=== PATIENT | male | born 1940 | race Caucasian/White ===

== ENCOUNTER 2016-12-10 08:30 | Inpatient (IN) | payer MEDICARE ==
--- NOTE | 2016-12-08 21:27 | HP ---
HISTORY AND PHYSICAL: DATE OF VISIT: 12/08/16 DATE OF SURGERY: 12/10/16 SURGEON: Domi Steele MD PROCEDURE: Left total hip arthroplasty. CHIEF COMPLAINT: Left hip pain. HISTORY OF PRESENT ILLNESS: Mr. Babb is a 76-year-old gentleman with complaints of left hip pain. He has failed conservative management and has elected to proceed with a left total hip arthroplasty, which is scheduled for with Dr. Steele. PAST MEDICAL HISTORY: Hypertension, asthma, high cholesterol, GERD, prostate cancer, spinal stenosis. PAST SURGICAL HISTORY: Radical prostatectomy, laminectomy, circumcision. CURRENT MEDICATIONS: 1. Metoprolol. 2. Vitamin B complex. 3. Citalopram. 4. Hydrobromide. 5. Fluticasone propionate. 6. Atorvastatin. 7. Calcium. 8. Aspirin. 9. Vitamin D. 10. Gabapentin. ALLERGIES: IBUPROFEN causes Medrano-Idris syndrome FAMILY HISTORY: Diabetes, heart disease, and colon cancer. SOCIAL HISTORY: He is a 76-year-old gentleman. He lives with his . He is retired. He does not smoke or use drugs. Uses occasional alcohol. REVIEW OF SYSTEMS: A complete 14-point review of systems was reviewed with the patient, all was negative or noncontributory. PHYSICAL EXAMINATION GENERAL: He is well-developed and well-nourished, he is in no acute distress. VITAL SIGNS: He stands 6 feet 4 inches tall, he is 190 pounds. Blood pressure 150/65 and heart rate 71. HEENT: Normocephalic, atraumatic. NECK: Supple. No palpable lymph nodes. Trachea is midline. PULMONARY: Lungs are clear to auscultation bilaterally. No wheezes, rhonchi, or rales. CARDIO: Regular rate and rhythm. Strong S1 and S2. No murmurs, gallops, or rubs. ABDOMEN: Soft, nontender, and nondistended. NEUROLOGIC: He is alert and oriented x3. Cranial nerves II through XII are intact. MUSCULOSKELETAL: Left lower extremity, skin is intact. He has limited range of motion with internal and external rotation of his left hip. He walks with an antalgic type gait. He has 2+ dorsalis pedal pulses. His lower extremities muscle group strengths were intact at 5/5. ASSESSMENT AND PLAN: Mr. Babb is a 76-year-old gentleman with complaints of left hip pain secondary to advanced osteoarthritis. He has failed conservative management and has elected to proceed with a left total hip arthroplasty, which is scheduled for 12/10/[address] Steele discussed the risks and the benefits of the surgery at today's visit and all of his questions were answered. Coumadin and Percocet were sent to his pharmacy today for postoperative pain control and DVT prophylaxis. He has a prescription for Colace to help with constipation following the surgery. He will follow up with Dr. Steele in 10 to 14 days after the surgery. EZE WINSTON [id number]/[facility] #: [id number] MTDD
[~2016-12-10 08:30] MED LIST: Buffered Lidocaine 1% SYRIN* 3 ML/SYR SYRINGE INTRADERM ONE; Dexamethasone IV* 4 MG/ML 1 ML (4 MG) IV SLOW PU ONE; Famotidine IV* 10 MG/ML 2 ML (20 mg) IV ONE
[2016-12-10] MEDS ORDERED: Bupivacaine 0.5% SDV PF* 30 ML VIAL ONE ×2 (11:04→14:16)
[2016-12-10] MEDS ORDERED: Propofol* 10 MG/ML 20 ML BTL IV PUSH ONE (11:04)
[2016-12-10] MEDS ORDERED: Famotidine IV* 10 MG/ML 2 ML (20 mg) ONE (12:32)
[2016-12-10] MEDS ORDERED: Dexamethasone IV* 4 MG/ML 1 ML (4 MG) ONE (12:32)
[2016-12-10] MEDS ORDERED: ceFAZolin 2 GM PREMIX(*) 2 GM/50 ML BAG IVPB ONE (12:32)
[2016-12-10] MEDS ORDERED: fentaNYL* 50 MCG/ML 2 ML VIAL (100 MCG VIAL) ONE ×2 (13:26→15:32)
[2016-12-10] MEDS ORDERED: Morphine PF AMP (0.5MG/ML)* 5 MG/10 ML AMP ONE (13:26)
[2016-12-10] MEDS ORDERED: Midazolam* 1 MG/ML 5 ML VIAL (5 MG) ONE (13:26)
[2016-12-10] MEDS ORDERED: HYDROmorphone* 1 MG/ML 1 ML SYR ONE ×3 (13:26→16:57)
[2016-12-10] MEDS ORDERED: Sevoflurane* 1 BTL ONE (14:27)
[2016-12-10] MEDS ORDERED: Meperidine SYRINGE* 50 MG/ML ONE (15:31)
[2016-12-10] MEDS ORDERED: DiMENhydriNATE IV* 50 MG/ML VIAL IV PUSH PRN ×2 (16:10→16:14)
[2016-12-10] MEDS ORDERED: fentaNYL* 50 MCG/ML 2 ML VIAL (100 MCG VIAL) IV PRN (16:10)
[2016-12-10] MEDS ORDERED: PROCHLORPERAZINE INJ 5 MG/ML 2 ML VIAL IV PRN ×2 (16:10→16:14)
[2016-12-10] MEDS ORDERED: Ondansetron INJ* 2 MG/ML VIAL IV PRN ×2 (16:10→16:14)
[2016-12-10] MEDS ORDERED: Naloxone* 0.4 MG/ML 1 ML VIAL IV PRN (16:14)
[2016-12-10] MEDS ORDERED: diPHENhydraMINE IV* 50 MG/ML 1 ml VIAL (BENADRYL) IV PRN (16:14)
[2016-12-10] MEDS ORDERED: Nalbuphine* 20 MG/ML 1 ML VIAL IV PRN (16:14)
[2016-12-10] MEDS ORDERED: oxyCODONE/Acetamin 5/325 MG* TAB PO PRN (16:14)
[2016-12-10] MEDS ORDERED: Polyethylene Glycol 3350* 17 GM PACKET PO PRN (16:55)
[2016-12-10] MEDS ORDERED: Bisacodyl SUPP* 10 MG SUPP PR PRN (16:55)
[2016-12-10] MEDS ORDERED: LACTULOSE* 30 ML UDC PO PRN (16:55)
--- NOTE | 2016-12-10 17:43 | RAD ---
INDICATION: Left total hip replacement surgery, intraoperative study. COMPARISON: Comparison is made with a prior x-ray study of the left hip from October 30, 2016. TECHNIQUE: A single portable x-ray study of the pelvis was obtained in the operating room. FINDINGS: There is a left acetabular prostheses and a femoral prostheses template in place. IMPRESSION: INTRAOPERATIVE CONTROL FILMS.
--- NOTE | 2016-12-10 18:55 | RAD ---
INDICATION: Status post total left hip replacement surgery. COMPARISON: Comparison is made with a prior x-ray study of the left hip from October 30, 2016. TECHNIQUE: AP and lateral films of the left hip were obtained portably. FINDINGS: The patient is status post total left hip replacement surgery. The bones and prostheses are in normal alignment. There is a small amount of air within the adjacent soft tissues consistent with the patient's recent surgery. IMPRESSION: STATUS POST TOTAL LEFT HIP REPLACEMENT SURGERY.
--- NOTE | 2016-12-10 18:56 | RAD ---
INDICATION: Status post total left hip replacement surgery. COMPARISON: Comparison is made with a prior x-ray study of the left hip and pelvis from October 30, 2016. TECHNIQUE: An AP view of the pelvis was obtained portably. FINDINGS: The patient is status post total left hip replacement surgery. The bones and prostheses are in normal alignment. There is a small amount of air within the adjacent soft tissues consistent with the patient's recent surgery. Several surgical clips project over the inferior portion of the pelvis. IMPRESSION: STATUS POST TOTAL LEFT HIP REPLACEMENT SURGERY.
[2016-12-10] MEDS: Gabapentin CAP(*) 300 MG PO SCH (21:32)
[2016-12-10] MEDS: Docusate CAP* 100 MG PO SCH (21:32)
[2016-12-10] MEDS ORDERED: Warfarin TAB(*) 6 MG PO ONE (22:00)
[2016-12-10] MEDS: ceFAZolin 1 GM in Dextrose (*) 1 GM/50 ML BAG IVPB SCH (23:00)
--- NOTE | 2016-12-11 00:03 | CONS ---
[facility] MEDICINE CONSULTATION REPORT: DATE OF ADMISSION: 12/10/16 DATE OF CONSULT: 12/10/16 ATTENDING PHYSICIAN: Domi Steele MD CONSULTING PHYSICIAN: Jaswinder Francisco MD (dictation provided by Shayla Amaya NP) PRIMARY DIAGNOSIS: Left total hip arthroplasty. REASON FOR CONSULTATION: Medical co-management. HISTORY OF PRESENT ILLNESS: Mr. Babb is a 76-year-old male with past medical history of hypertension, asthma, hyperlipidemia, GERD, prostate cancer, and spinal stenosis who presented to the hospital today for an elective left total knee arthroplasty. Please see the dictated H and P from Dr. Steele for complete details, but Mr. Babb had failed conservative management and elected to proceed with a left total hip arthroplasty with Dr. Steele. Mr. Babb reports that prior to coming into surgery today, he was feeling in his normal state of health with no acute complaints. He has had no symptoms of fevers, chills, chest pain, shortness of breath, nausea, vomiting, or abdominal pain. He does have chronic back pain and hip pain on the left, which has also been causing him some discomfort, but this again is not new. PAST MEDICAL HISTORY: 1. Hypertension. 2. Asthma. 3. High cholesterol. 4. GERD. 5. Prostate cancer. 6. Spinal stenosis. PAST SURGICAL HISTORY: 1. Radical prostatectomy. 2. Laminectomy. 3. Circumcision. CURRENT MEDICATIONS: 1. Tylenol 975 mg p.o. q.4 hours p.r.n. 2. Aspirin 81 mg p.o. daily. 3. Cholecalciferol 1000 units p.o. b.i.d. 4. Fluticasone 2 inhalations inhaled daily. 5. MiraLAX 17 g p.o. daily. 6. Zolpidem 5 mg p.o. at bedtime. 7. Atorvastatin 10 mg p.o. daily. 8. Citalopram 20 mg p.o. daily. 9. Gabapentin 300 mg p.o. b.i.d. 10. Metoprolol tartrate 12.5 mg p.o. daily. ALLERGIES: To IBUPROFEN. FAMILY HISTORY: Reportedly the patient's mother in 87, suspected related to bowel cancer. Dad in his 60s related to diabetes and heart problems. He has a sister who at 68 with diabetes and stroke and another sister who is alive at age 70. SOCIAL HISTORY: No report of alcohol, tobacco, or drug use. The patient lives with his , who is the health care proxy. REVIEW OF SYSTEMS: A 14-point review of systems was completed with Mr. Babb and all those not mentioned above were negative. PHYSICAL EXAM: Vital Signs: Temperature 96.1, pulse rate 59, respiratory rate 16, O2 saturation 100% on 2 L nasal cannula, and blood pressure 96/53. General : Mr. Babb is sitting in the bed, in no acute distress. Neuro: He is alert and oriented x3. He moves all extremities equally. There is no facial asymmetry or focal weakness. Extraocular movements are intact. Lungs: Clear to auscultation bilaterally with no accessory muscle use and good aeration. Heart: S1, S2. No murmur, rub, or gallop and regular. Abdomen: Soft and nontender. Bowel sounds positive x4. Extremities: No cyanosis or edema. Skin : Intact. DIAGNOSTIC STUDIES/LAB DATA: On 12/03/16: WBC 7.8, hemoglobin 14.1, hematocrit 42, and platelet count 258. Sodium 130, potassium 4.0. Chloride 104 , serum bicarbonate 29, BUN 15, creatinine 0.82, and glucose 134. ASSESSMENT: Mr. Babb is a 76-year-old male with a past medical history of hypertension, asthma, and high cholesterol who presents to the hospital today for left total hip arthroplasty. Our recommendations are as follows: 1. Left total hip arthroplasty: Management will be per Ortho. Pain medications will be continued p.r.n. with bowel regimen. The patient will have PT/OT. We will monitor his H and H closely. 2. Hypertension: Plan to continue his metoprolol. 3. Asthma: Plan to continue his fluticasone. The patient states this is well controlled and do not use an inhaler. 4. DVT prophylaxis: With warfarin and Lovenox per Ortho. 5. Code status: Full code. TIME SPENT: Approximately 60 minutes was spent in the consultation of this patient, more than half of the time was spent with the patient at the bedside reviewing the events leading up to this hospitalization, performing the physical examination, and reviewing my plan [place] [id number]/[facility] #: [id number] QUIRINO
[2016-12-11 06:09] LABS: Hematocrit 35 % (42-52); Hemoglobin 11.8 g/dl (14.0-18.0)
[2016-12-11 06:23] LABS: BUN/Creatinine Ratio 22.7 (8-20); Calcium 8.1 mg/dL (8.6-10.3); EGFR African American 129.5 (>60); EGFR Non-African American 100.7 (>60); Potassium 4.1 mmol/L (3.5-5.0)
[2016-12-11] MEDS: ceFAZolin 1 GM in Dextrose (*) 1 GM/50 ML BAG IVPB SCH ×2 (06:27→14:52)
[2016-12-11] MEDS ORDERED: Morphine INJ* 2 MG/ML 1 ML SYRINGE IV PRN (07:15)
[2016-12-11] MEDS ORDERED: Ondansetron TAB* 4 MG PO PRN (07:15)
[2016-12-11] MEDS ORDERED: diPHENhydraMINE IV* 50 MG/ML 1 ml VIAL (BENADRYL) IV PRN (07:15)
[2016-12-11] MEDS ORDERED: oxyCODONE TAB* 5 MG TAB PO PRN (07:15)
[2016-12-11] MEDS: oxyCODONE/Acetamin 5/325 MG* TAB PO PRN ×3 (07:22→16:48)
[2016-12-11] MEDS: Metoprolol Tartrate TAB* 25 MG PO SCH (08:24)
[2016-12-11] MEDS: Docusate CAP* 100 MG PO SCH ×2 (08:24→20:04)
[2016-12-11] MEDS: Gabapentin CAP(*) 300 MG PO SCH ×2 (08:24→20:04)
[2016-12-11] MEDS: Atorvastatin* 20 MG TAB PO SCH (08:25)
[2016-12-11] MEDS: Magnesium Hydroxide LIQ* 30 ML UDC PO PRN ×2 (08:25→20:04)
[2016-12-11] MEDS: Citalopram TAB* 20 MG PO SCH (08:25)
--- NOTE | 2016-12-11 12:07 | OP ---
OPERATIVE REPORT: DATE OF OPERATION: 12/10/16 DATE OF : 36 SURGEON: Domi Steele MD SENIOR WEB DEVELOPER: EZE Anderson This household assistant was present throughout the entire procedure and did help with prepping, retraction, a nd all parts of the procedure. ANESTHESIOLOGIST: Dr. Bray. ANESTHESIA: Spinal. PRE-OP DIAGNOSIS: Severe end-stage degenerative osteoarthritis of the left hip joint. POST-OP DIAGNOSIS: Severe end-stage degenerative osteoarthritis of the left hip joint. OPERATIVE PROCEDURE: Left total hip arthroplasty. INDICATION: Ms. Babb is a 76-year-old gentleman with years of increasingly severe left hip shakeel n. Radiographs confirmed end-stage arthritis. He failed conservative treatment with antiinflammato evelyne, pain medication, physical therapy, and activity modification. He elected to undergo a left to amy hip arthroplasty due to continued pain and decreased quality of life. Informed consent was obta ined from the patient. He understood the risks of the surgery included, but were not limited to ble eding, infection, damage to nearby structures, continued pain, need for further surgery, intraoperat yunior fracture, nerve palsy, hardware failure or loosening, dislocation, leg length discrepancy, strok e, heart attack, blood clot, and . He wished to proceed. COMPLICATIONS: None. ESTIMATED BLOOD LOSS: 450 cc. SPECIMEN: Femoral head and acetabular reaming sent to Pathology. HARDWARE USED: This is uncemented Wiley total hip hardware. For the cup, a Tritanium cluster hol e shell 60F, 125-mm screw was used. An MDM cementless liner 46F. For the femoral stem, an Accolade TMZF size 4, 127-degree neck. For the head, a Biolox delta ceramic V40 femoral head 28 +4. For in the insert, Nondenominational ADM MDX3 insert 28/52/46F. INTRAOPERATIVE FINDINGS: Intraoperatively, the patient was noted to have severe end-stage arthritis . He had complete loss of cartilage in the acetabulum and femoral head. Significant osteophyte for mation along the entire anterior and inferior portion of the acetabulum. DESCRIPTION OF PROCEDURE: Ms. Babb was identified in the preanesthesia unit. His left lower ex tremity was marked as the correct operative side. Informed consent was signed and placed in the [facility]. The patient was taken to the operating room and placed under spinal anesthesia. A Mata cathet er was placed. The patient was placed in the right lateral decubitus position on the peg board with all bony prominences well-padded. Left lower extremity was prepped and draped in the usual sterile fashion. Preop time-out was made to correctly identify the patient's side and site. Appropriate p erioperative antibiotics were given within 1 hour of incision. A 14-cm posterior incision was made with a skin knife and carried down to the lateral fascial layer. The lateral fascia was incised in line with the skin incision. Charnley retractor was placed. Th e piriformis and conjoint tendons were easily identified. These were elevated off the posterolatera l femur using electrocautery. Two #5 Ethibond's were used to tag the tendons. Next, electrocautery was used to make a standard posterolateral capsular flap and this was also tagg ed with two #5 Ethibond's. The hip was carefully dislocated. All cartilages worn from the femoral head and acetabulum. The le sser troch to center of the femoral head measured 63 mm. Oscillating saw was used to make the approp riate femoral neck cut. The femoral head was carefully removed. The femur was retracted anteriorly. After appropriate placement of retractors, the acetabulum was e asily visualized. A long-handled knife was used to remove any remaining labrum from the acetabular rim. The acetabulum was sequentially reamed up to a size 59. 59 trial had good fit as well as the anteversion and abduction angle. Final implant chosen was a Tritanium hemispherical cluster hole sh ell 60F. Good bleeding bone bed was noted and this final implant was impacted into the acetabulum wi thout difficulty. There was appropriate anteversion and abduction angle. Good stability. 125-mm s crew was placed in the superior posterior quadrant for extra stability. An MDM liner cementless 46F was chosen and impacted into the acetabulum. Stability of the liner was checked and rechecked and noted to be stable. Attention was turned next to preparation of the proximal femur. The canal finder was used to enter the intramedullary canal. Femoral canal was sequentially broached up to a size 4. Size 4 had good anteversion and excellent stability. A 127-degree neck trial as well as a 28 +0 femoral head and a 28/52/46F insert trial was chosen. The hip was carefully reduced. The hip was taken through a rang e of motion and was stable in all positions. Leg lengths seemed appropriate. All trials were carefully removed. Final implant chosen was an Accolade TMZF size 4 with a 127-degr ee neck. This was impacted into the femoral canal without difficulty. Trial femoral head +0 was ch osen and the lesser troch to the center of the femoral head measured 62 mm. Therefore, final implan t chosen was a Biolox delta ceramic V40 femoral head, 28, +4 mm. The insert was a 28/52/46F. This was impacted onto the femoral neck without difficulty. The hip was reduced and taken through a rang e of motion. The hip was stable in all positions. There was good soft tissue tension. Previously tagged tendons and capsule were reapproximated to the posterolateral femoral through 2 tr ochanteric drill holes. The hip was copiously irrigated with sterile saline. Lateral fascial layer was reapproximated using interrupted #1 Vicryl's. The rest of the incision was closed in a layered fashion using 0 and 2-0 Vicryl's. Skin was closed using running 3-0 Monocryl suture and Dermabond. Sterile Adaptic, 4x4s, and paper tape were used to cover the incision. The patient's anesthesia was reversed without difficulty. He was taken to the PACU in stable condit ion. Intended weightbearing will be weightbearing as tolerated with posterior hip precautions. Int ended DVT prophylaxis will be Coumadin with a Lovenox bridge. [id number]/[facility] #: [id number]
--- NOTE | 2016-12-11 12:14 | PN ---
Progress Note - Progress Note SOAP: Subjective: []Patient seen at bedside. Was up earlier now resting. Feeling well. Pain well managed. Objective: [] Vital Signs Temp 97.9 F 12/11/16 11:53 Pulse 75 12/11/16 11:53 Resp 18 12/11/16 12:01 BP 129/53 12/11/16 11:53 Pulse Ox 100 12/11/16 11:53 Intake & Output 12/10/16 12/11/16 12/11/16 18:59 06:59 18:59 Intake Total 3000 2043 893 Output Total 800 850 875 Balance 2200 1193 18 Weight 180 lb Intake: IV Fluids 3000 920 523 LR 920 523 lr 3000 IVPB 53 50 ABX - CEFAZOLIN 53 50 Oral 1070 320 Output: Mata 600 850 875 Estimated Blood Loss 200 Other: # Bowel Movements 0 Laboratory Results - last 24 hr 12/11/16 12/11/16 12/11/16 05:40 05:41 05:41 Hgb 11.8 L Hct 35 L INR (Anticoag Therapy) 1.06 Sodium 136 Potassium 4.1 Chloride 103 Carbon Dioxide 27 Anion Gap 6 BUN 17 Creatinine 0.75 Est GFR ( Amer) 129.5 Est GFR (Non-Af Amer) 100.7 BUN/Creatinine Ratio 22.7 H Glucose 110 H Calcium 8.1 L Left hip dressing is dry and intact calf NT and soft +DF/PF right ankle neurovascularly intact distally Assessment: []s/p Left total hip arthroplasty POD #1 Plan: []PT/OT WBAT LLE Coumadin with Lovenox bridge- 8mg today Probable discharge home 12/13
[2016-12-11] MEDS ORDERED: Magnesium CITRATE* 300 ML BTL PO ONE (16:17)
--- NOTE | 2016-12-11 16:52 | PN ---
Subjective Date of Service: 12/11/16 Interval History: Pt feels well, c/o constipation Objective Active Medications: Acetaminophen (Tylenol Tab*) 650 mg PO Q4H PRN PRN Reason: PAIN OR TEMPERATURE Atorvastatin Calcium (Lipitor*) 10 mg PO DAILY [facility] Last Admin: 12/11/16 08:25 Dose: 10 mg Bisacodyl (Dulcolax Supp*) 10 mg CA DAILY PRN PRN Reason: constipation Citalopram Hydrobromide (Celexa Tab*) 20 mg PO DAILY [facility] Last Admin: 12/11/16 08:25 Dose: 20 mg Diphenhydramine HCl (Benadryl Iv*) 12.5 mg IV Q6H PRN PRN Reason: PRURITIS Docusate Sodium (Colace Cap*) 100 mg PO BID [facility] Last Admin: 12/11/16 08:24 Dose: 100 mg Enoxaparin Sodium (Lovenox(*)) 30 mg SUBCUT Q24H [facility] Gabapentin (Neurontin Cap(*)) 300 mg PO BID [facility] Last Admin: 12/11/16 08:24 Dose: 300 mg Lactated Ringer's (Lactated Ringers 1000 Ml Bag*) 1,000 mls @ 100 mls/hr IV PER RATE [facility] Last Admin: 12/11/16 06:27 Dose: 100 mls/hr Lactulose (Lactulose*) 30 ml PO Q6H PRN PRN Reason: constipation Magnesium Hydroxide (Milk Of Magnesia Liq*) 30 ml PO Q6H PRN PRN Reason: constipation Last Admin: 12/11/16 08:25 Dose: 30 ml Metoprolol Tartrate (Lopressor Tab*) 12.5 mg PO DAILY [facility] Last Admin: 12/11/16 08:24 Dose: 12.5 mg Morphine Sulfate (Morphine Inj (Syringe)*) 2 mg IV Q2H PRN PRN Reason: PAIN Ondansetron HCl (Zofran Tab*) 4 mg PO Q6H PRN PRN Reason: NAUSEA Oxycodone HCl (Roxycodone Tab*) 10 mg PO Q4H PRN PRN Reason: SEVERE PAIN Oxycodone/Acetaminophen (Percocet 5/325 Tab*) 1 tab PO Q3H PRN PRN Reason: PAIN - MODERATE Oxycodone/Acetaminophen (Percocet 5/325 Tab*) 2 tab PO Q3H PRN PRN Reason: PAIN - MODERATE Last Admin: 12/11/16 12:01 Dose: 2 tab Pharmacy Profile Note (Coumadin Daily Reminder*) 1 note FOLLOW UP 1700 EARLINE Polyethylene Glycol/Electrolytes (Miralax*) 17 gm PO DAILY PRN PRN Reason: Constipation Warfarin Sodium (Coumadin Tab(*)) 8 mg PO ONCE@1700 ONE PRN Reason: Protocol Stop: 12/11/16 17:01 Vital Signs 12/10/16 12/10/16 12/10/16 17:43 17:45 17:50 Temperature 97.7 F Pulse Rate 68 70 71 Respiratory 18 14 14 Rate Blood Pressure 78/36 77/40 123/52 (mmHg) O2 Sat by Pulse 93 97 97 Oximetry 12/10/16 12/10/16 12/10/16 17:54 17:55 18:00 Temperature Pulse Rate 72 67 Respiratory 14 14 Rate Blood Pressure 106/46 107/46 (mmHg) O2 Sat by Pulse 97 96 96 Oximetry 12/10/16 12/10/16 12/10/16 18:05 18:10 18:15 Temperature Pulse Rate 72 72 73 Respiratory 13 13 13 Rate Blood Pressure 105/44 101/44 101/47 (mmHg) O2 Sat by Pulse 96 96 97 Oximetry 12/10/16 12/10/16 12/10/16 18:30 18:45 19:00 Temperature 96.8 F Pulse Rate 70 68 63 Respiratory 17 14 15 Rate Blood Pressure 86/41 89/39 80/43 (mmHg) O2 Sat by Pulse 97 96 97 Oximetry 12/10/16 12/10/16 12/10/16 19:15 19:30 19:45 Temperature Pulse Rate 65 67 62 Respiratory 16 20 16 Rate Blood Pressure 85/41 82/44 93/43 (mmHg) O2 Sat by Pulse 97 97 97 Oximetry 12/10/16 12/10/16 12/10/16 20:00 20:15 20:47 Temperature 96.1 F Pulse Rate 64 63 59 Respiratory 14 14 16 Rate Blood Pressure 96/46 100/43 96/53 (mmHg) O2 Sat by Pulse 99 100 100 Oximetry 12/10/16 12/10/16 12/10/16 20:50 20:54 21:51 Temperature 96.1 F 96.9 F Pulse Rate 59 65 Respiratory 16 16 14 Rate Blood Pressure 96/53 101/49 (mmHg) O2 Sat by Pulse 100 100 Oximetry 12/10/16 12/11/16 12/11/16 22:54 00:00 00:52 Temperature 98.4 F Pulse Rate 65 74 Respiratory 14 16 Rate Blood Pressure 112/68 103/57 (mmHg) O2 Sat by Pulse 100 100 100 Oximetry 12/11/16 12/11/16 12/11/16 01:14 02:47 03:14 Temperature 98.1 F Pulse Rate 68 Respiratory 16 16 16 Rate Blood Pressure 106/48 (mmHg) O2 Sat by Pulse 100 Oximetry 12/11/16 12/11/16 12/11/16 07:10 07:22 08:00 Temperature 97.5 F Pulse Rate 77 Respiratory 15 18 18 Rate Blood Pressure 102/46 (mmHg) O2 Sat by Pulse 100 100 Oximetry 12/11/16 12/11/16 12/11/16 08:24 09:12 10:24 Temperature Pulse Rate Respiratory 18 18 18 Rate Blood Pressure (mmHg) O2 Sat by Pulse Oximetry 12/11/16 12/11/16 12/11/16 11:53 12:01 14:01 Temperature 97.9 F Pulse Rate 75 Respiratory 16 18 18 Rate Blood Pressure 129/53 (mmHg) O2 Sat by Pulse 100 Oximetry 12/11/16 12/11/16 15:25 16:00 Temperature 98.5 F Pulse Rate 82 Respiratory 18 Rate Blood Pressure 127/53 (mmHg) O2 Sat by Pulse 99 99 Oximetry Oxygen Devices in Use Now: None Appearance: 76 yo M in nAd, AAOx3 Eyes: No Scleral Icterus, PERRLA Ears/Nose/Mouth/Throat: NL Teeth, Lips, Gums, Mucous Membranes Moist Neck: NL Appearance and Movements; NL JVP, Trachea Midline Respiratory: Symmetrical Chest Expansion and Respiratory Effort, Clear to Auscultation Cardiovascular: NL Sounds; No Murmurs; No JVD, RRR Abdominal: NL Sounds; No Tenderness; No Distention Lymphatic: No Cervical Adenopathy Extremities: No Edema, No Clubbing, Cyanosis Skin: No Rash or Ulcers, No Nodules or Sclerosis, - - Left post op hip covered, no obvious hematoma noted, surgical dressings not removed Neurological: Alert and Oriented x 3, NL Muscle Strength and Tone Result Diagrams: 12/11/16 05:41 04/27/17 05:40 Assess/Plan/Problems-Billing Assessment: 76 yo M with h/o chronic back pain, HTN, asthma presented for elective left hip replacement. Medicine was consulted re: chronic med problems. - Patient Problems (1) Status post total hip replacement, left Comment: As per ortho service. Plan to d/c home with services in 1-2 days (2) HTN (hypertension) Comment: controlled, cont lopressor (3) Dyslipidemia Comment: cont statin (4) DVT prophylaxis Comment: Lovenox/Coumadin as per Dr. Steele Status and Disposition: Will sign off, please call if needed. Thank you for consult
[2016-12-11] MEDS ORDERED: Warfarin TAB(*) 4 MG PO ONE (17:00)
[2016-12-11] MEDS ORDERED: Enoxaparin(*) 30 MG/0.3 ML SYR SUBCUT SCH (17:00)
[2016-12-11] MEDS: Acetaminophen TAB* 325 MG PO PRN (20:04)
[2016-12-12] MEDS: oxyCODONE/Acetamin 5/325 MG* TAB PO PRN ×3 (00:13→16:07)
[2016-12-12] MEDS: Acetaminophen TAB* 325 MG PO PRN ×2 (06:05→14:16)
[2016-12-12 06:33] LABS: Hematocrit 33 % (42-52); Hemoglobin 11.2 g/dl (14.0-18.0); Mean Platelet Volume 8 um3 (7.4-10.4)
[2016-12-12] MEDS: Metoprolol Tartrate TAB* 25 MG PO SCH (08:28)
[2016-12-12] MEDS: Atorvastatin* 20 MG TAB PO SCH (08:28)
[2016-12-12] MEDS: Citalopram TAB* 20 MG PO SCH (08:29)
[2016-12-12] MEDS: Gabapentin CAP(*) 300 MG PO SCH (08:29)
[2016-12-12] MEDS: Docusate CAP* 100 MG PO SCH (08:29)
[2016-12-12 12:16] VITALS: BP 129/51
[2016-12-12] MEDS: Magnesium Hydroxide LIQ* 30 ML UDC PO PRN (14:16)
--- NOTE | 2016-12-12 15:14 | PN ---
Progress Note - Progress Note SOAP: Subjective: [Pt is doing well. His pain is controlled. He is doing well with PT. Denies CP, SOB, calf pain or f/c. He denies bowel movement Objective: PE- 76 y/o M NAD lying comfortably in bed LLE- dressing changes, inc c/d/i, + PF/DF of ankle, calf soft nontender, NVI Vital Signs Temp Pulse Resp BP Pulse Ox 98.3 F 79 14 129/51 97 12/12/16 11:47 12/12/16 11:47 12/12/16 11:47 12/12/16 11:47 12/12/16 11:47 Laboratory Results - last 24 hr 12/12/16 12/12/16 05:55 05:55 Hgb 11.2 L Hct 33 L Plt Count 189 MPV 8 INR (Anticoag Therapy) 1.25 H Assessment: POD #2 S/P left TKA Plan: DC to home with VNS WBAT LLE-cont PT Cont percocet, coumadin and colace, suppository if no BM in 24 hrs Per nurse is concerned about recent urinary incontinence so a UA was ordered prior to discharge. Pt understands results will be in after discharge. F/U 10-14 days post op
[2016-12-12 16:13] LABS: Urine Bacteria Absent (Absent); Urine Bilirubin Negative (Negative); Urine Glucose 1+(50 mg/dL) (Negative); Urine Nitrite Negative (Negative)
--- NOTE | 2016-12-13 04:15 | DS ---
DISCHARGE SUMMARY: DATE OF ADMISSION: 12/10/16 DATE OF DISCHARGE: 12/12/16 PROVIDER: Domi Steele MD ADMITTING DIAGNOSIS: Status post left total knee replacement due to severe left knee osteoarthritis. SECONDARY DIAGNOSES: 1. Hypertension. 2. Asthma. 3. High cholesterol. 4. Gastroesophageal reflux disease. 5. Prostate cancer. 6. Spinal stenosis. CONSULTATIONS: Medicine, Physical Therapy, Occupational Therapy. HISTORY OF PRESENT ILLNESS: The patient is a 76-year-old gentleman with complaints of ongoing left hip pain due to severe osteoarthritis. He failed conservative measure and therefore agreed to undergo left total hip arthroplasty with Dr. Steele on 12/10/16. HOSPITAL COURSE: Mr. Babb was admitted to [facility] on . He underwent a left total knee replacement with Dr. Steele. Postoperatively , he recovered on the short-stay surgical stay unit. On postop day 1, his Mata was removed. He was able to urinate on his own. He was advanced to a regular diet without difficulty. His pain was controlled with oral Percocet. He was restarted on home medications. His labs and vitals remained stable. He is able to weight bear as tolerated on the left lower extremity. He advanced appropriately with physical therapy and occupational therapy. DVT prophylaxis was managed with Lovenox and Coumadin until he reached a therapeutic INR. INR on 12/11/16 was 1.06 and on 12/12/16 was 1.25. Coumadin dosing on 12/10/16 was 6 mg and on 12/11/16 was 8 mg. By postop day 2, he was orthopedically and medically stable for discharge to home with VNS services. PHYSICAL EXAMINATION: General: A 76-year-old well-developed, well-nourished male, in no acute distress, lying comfortably in bed. Left lower extremity, dressing was changed. Incision was clean, dry, and intact. Positive for plantarflexion, dorsiflexion in the ankle. Calf is soft and nontender. Neurovascularly intact. DISCHARGE CONDITION: Stable. DISCHARGE MEDICATIONS: Home medications continued on discharge to include: 1. Citalopram 20 mg 1 tab by mouth daily. 2. Atorvastatin 10 mg by mouth daily. 3. Aspirin 81 mg by mouth daily. 4. Fluticasone 2 inhalations daily. 5. Metoprolol 12.5 mg by mouth daily. 6. Acetaminophen 975 mg by mouth every 4 hours. 7. Ambien 5 mg by mouth at bedtime. 8. MiraLAX 17 g by mouth daily. 9. Gabapentin 300 mg by mouth twice a day. 10. Vitamin D3 by mouth twice a day. New medications on discharge to include: 1. Docusate 100 mg by mouth 2 to 3 times a day for constipation. 2. Warfarin 2 mg by mouth as directed by physician. 3. Percocet 5/325 one to two tablets every 4 to 6 hours as needed for pain. DISCHARGE INSTRUCTIONS: The patient may shower on postop day 4 and may redress with a light dressing, 4x4s and Yovani. Keep sutures intact until postop visit. Do not submerge in water such as bath. Weightbearing as tolerated, left lower extremity. Percocet for pain. Colace for constipation. He has not a bowel movement. If he does not have a bowel movement in the next 24 hours, he could use an [id number] suppository. If this does not work, then he should call the office. He will be doing physical therapy at home. Visiting nurses to draw INRs on Thursday and . The patient will be on Coumadin for 1 month for DVT prophylaxis. Coumadin dosing 12/12/16, 8 mg; 12/13/16, 8 mg; , 8 mg, 12/15/16 on Thursday. The patient should go to the ER if he develops any chest pain, shortness of breath, calf pain, or temperature greater than 101.5. He will follow up with Dr. Steele in 10 to 14 days postop. EZE WEAVER [id number]/[facility] #: [id number] [facility]ALTH SYSTEMDangelo
== END 2016-12-12 16:10 | disposition home health service (06) | DRG 470 ==
LOC: AA 12:19 → SSU 21:08
PROVIDERS: ADMIT Orthopaedic Surgery Adult Reconstructive Orthopaedic Surgery; ATTEND Orthopaedic Surgery Adult Reconstructive Orthopaedic Surgery
PROC: 0SRB03A Replacement of Left Hip Joint with Ceramic Synthetic Substitute, Uncemented, Open Approach (ICD-10-PCS; principal; 2016-12-10 14:00)
DX: M16.12 Unilateral primary osteoarthritis, left hip (principal); I10 Essential (primary) hypertension; J45.909 Unspecified asthma, uncomplicated; E78.00 Pure hypercholesterolemia, unspecified; K21.9 Gastro-esophageal reflux disease without esophagitis; K59.00 Constipation, unspecified; R32 Unspecified urinary incontinence; K58.9 Irritable bowel syndrome, unspecified; F41.9 Anxiety disorder, unspecified; F32.9 Major depressive disorder, single episode, unspecified; G57.90 Unspecified mononeuropathy of unspecified lower limb; G89.29 Other chronic pain; Z85.46 Personal history of malignant neoplasm of prostate; Z88.6 Allergy status to analgesic agent; Z83.3 Family history of diabetes mellitus; Z82.49 Family history of ischemic heart disease and other diseases of the circulatory system; Z80.0 Family history of malignant neoplasm of digestive organs; Z82.3 Family history of stroke; Z79.01 Long term (current) use of anticoagulants
CPT/HCPCS: 36415; 72170; 80048; 81003; 81015; 85014; 85018; 85049; 85610; 94762; A9270-GY; C1713; C1776; J0690; J1100; J1170; J1650; J2250; J2704; J3010

== ENCOUNTER 2018-02-10 08:57 | Day surgery (SDC) | payer MEDICARE ==
[~2018-02-10 08:57] MED LIST changes: +Acetaminophen TAB* 325 MG PO PRN; +Buffered Lidocaine 0.9% SYRIN* 5 ML/SYR SYRINGE INTRADERM ONE; -Buffered Lidocaine 1% SYRIN* 3 ML/SYR SYRINGE INTRADERM ONE; -Dexamethasone IV* 4 MG/ML 1 ML (4 MG) IV SLOW PU ONE; -Famotidine IV* 10 MG/ML 2 ML (20 mg) IV ONE
[2018-02-10] MEDS ORDERED: Midazolam* 1 MG/ML 2 ML VIAL (2 MG) ONE (10:45)
[2018-02-10] MEDS ORDERED: fentaNYL* 50 MCG/ML 2 ML VIAL (100 MCG VIAL) ONE (10:45)
[2018-02-10 11:52] VITALS: BP 108/57
--- NOTE | 2018-02-10 12:05 | OP ---
DATE OF OPERATION: 02/10/2018. DATE OF : 1940. SURGEON: oRe Espino M.D. PREOPERATIVE DIAGNOSIS: Cataract left eye. POSTOPERATIVE DIAGNOSIS: Cataract left eye. OPERATIVE PROCEDURE: Extracapsular cataract extraction with intraocular lens implant left eye. PROCEDURE: The patient was brought to the operating room after being given 1/2% Alcaine with epineph rine drops in the preoperative area. The eye was prepped and draped in the usual sterile fashion. S terile drape and eyelid speculum were placed. Again, topical 1/2% Alcaine with epinephrine was given . A paracentesis incision was made at the 3 o'clock position with the No.75 blade. Clear cornea inc ision 2.2 x 2.2-mm was created at the 6 o'clock position starting at the anterior limbus using the 2. 2-mm keratome. The anterior chamber was irrigated with 0.4 mL of 1% non-preservative intracameral li docaine and filled with DisCoVisc. A capsulorrhexis was completed using the cystotome and the Utrata forceps. Hydrodissection was performed with balanced salt solution. The lens nucleus was removed wi th the Phacoemulsification handpiece without incident. Cortex was removed with the irrigation-aspira tion handpiece. The capsular bag was re-inflated using DisCoVisc and an SN6AT6 14.5 implant was inse rted with the shooter, oriented to the 162 degree meridian. Horizontal reference henriquez made with the patient in a seated position in the preoperative area. The irrigation-aspiration handpiece was used to remove all residual DisCoVisc. The eye was refilled with balanced salt solution and the wound ch ecked and found to be watertight. Topical Maxitrol drops were given. [id number]/[facility] #: [id number]
[2018-02-10] MEDS ORDERED: acetaZOLAMIDE TAB* 250 MG ONE (13:48)
[2018-02-10] MEDS ORDERED: Cyclopentolate 1% OPTH.SOL* 2 ML BTL ONE (13:48)
[2018-02-10] MEDS ORDERED: Proparacaine 0.5% OPHTH.SOL* 15 ML BTL ONE (13:49)
[2018-02-10] MEDS ORDERED: Lidocaine 1%* 5 ML VIAL ONE (13:49)
[2018-02-10] MEDS ORDERED: Ketorolac 0.5% OPHTH (NF) 0.5 % 5 ML BTL ONE (13:49)
[2018-02-10] MEDS ORDERED: Neomycin/Polymy/Dex OPTH.SUSP* MAXITROL 0.1% 5 ML ONE (13:49)
[2018-02-10] MEDS ORDERED: Povidone Iodine 5% OPTH* 30 ML BTL ONE (13:49)
[2018-02-10] MEDS ORDERED: Phenylephrine 2.5% OPTH.SOL* 2 ML BTL ONE (13:49)
[2018-02-10] MEDS ORDERED: Lidocaine 2% EPI 1:200000 MPF*10-20 ML VIAL ONE (13:49)
== END 2018-02-10 11:51 | disposition home or self-care (01) ==
LOC: OREAST 08:57
PROVIDERS: ATTEND Specialist
DX: H25.812 Combined forms of age-related cataract, left eye (principal); H35.372 Puckering of macula, left eye; Z87.891 Personal history of nicotine dependence; I10 Essential (primary) hypertension; E78.00 Pure hypercholesterolemia, unspecified; M16.0 Bilateral primary osteoarthritis of hip; M47.9 Spondylosis, unspecified; Z85.46 Personal history of malignant neoplasm of prostate; F41.8 Other specified anxiety disorders; M54.5 Low back pain; H93.11 Tinnitus, right ear
CPT/HCPCS: A9270-GY; J2250; J3010; V2787

== ENCOUNTER 2018-02-24 08:57 | Day surgery (SDC) | payer MEDICARE ==
[~2018-02-24 08:57] MED LIST changes: +Midazolam* 1 MG/ML 2 ML VIAL (2 MG) ONE
[2018-02-24] MEDS ORDERED: fentaNYL* 50 MCG/ML 2 ML VIAL (100 MCG VIAL) ONE (11:19)
[2018-02-24 11:36] VITALS: BP 121/54
[2018-02-24] MEDS ORDERED: Ketorolac 0.5% OPHTH (NF) 0.5 % 5 ML BTL ONE (15:06)
[2018-02-24] MEDS ORDERED: Phenylephrine 2.5% OPTH.SOL* 2 ML BTL ONE (15:06)
[2018-02-24] MEDS ORDERED: Lidocaine 2% EPI 1:200000 MPF*10-20 ML VIAL ONE (15:06)
[2018-02-24] MEDS ORDERED: Povidone Iodine 5% OPTH* 30 ML BTL ONE (15:06)
[2018-02-24] MEDS ORDERED: Cyclopentolate 1% OPTH.SOL* 2 ML BTL ONE (15:06)
[2018-02-24] MEDS ORDERED: Lidocaine 1%* 5 ML VIAL ONE (15:06)
[2018-02-24] MEDS ORDERED: acetaZOLAMIDE TAB* 250 MG ONE (15:06)
[2018-02-24] MEDS ORDERED: Neomycin/Polymy/Dex OPTH.SUSP* MAXITROL 0.1% 5 ML ONE (15:06)
[2018-02-24] MEDS ORDERED: Proparacaine 0.5% OPHTH.SOL* 15 ML BTL ONE (15:06)
--- NOTE | 2018-02-24 22:50 | OP ---
DATE OF OPERATION: 02/24/18 [facility] DATE OF : [birth year] SURGEON: Roe Espino M.D. PREOPERATIVE DIAGNOSIS: Cataract, right eye. POSTOPERATIVE DIAGNOSIS: Cataract, right eye. OPERATIVE PROCEDURE: Extracapsular cataract extraction with intraocular lens implant right eye. DESCRIPTION OF PROCEDURE: The patient was brought to the operating room after being given 1/2% Alcaine with epinephrine drops in the preoperative area. The eye was prepped and draped in the usual sterile fashion. Sterile drape and eyelid speculum were placed. Again, topical 1/2% Alcaine with epinephrine was given. A paracentesis incision was made at the 9 o'clock position with the No.75 blade. Clear cornea incision 2.2 x 2.2-mm was created at the 12 o'clock position starting at the anterior limbus using the 2.2-mm keratome. The anterior chamber was irrigated with 0.4 mL of 1% non-preservative intracameral lidocaine and filled with DisCoVisc. A capsulorrhexis was completed using the cystotome and the Utrata forceps. Hydrodissection was performed with balanced salt solution. The lens nucleus was removed with the Phacoemulsification handpiece without incident. Cortex was removed with the irrigation-aspiration handpiece. The capsular bag was re-inflated using DisCoVisc and an SN6AT6 of 15 implant was inserted with the shooter, oriented to the 1 degree meridian. Horizontal reference henriquez made with the patient in a seated position in the preoperative area. The irrigation-aspiration handpiece was used to remove all residual DisCoVisc. The eye was refilled with balanced salt solution and the wound checked and found to be watertight. Topical Maxitrol drops were given. [id number]/[facility] #: [id number] [facility]
== END 2018-02-24 11:41 | disposition home or self-care (01) ==
LOC: OREAST 08:57
PROVIDERS: ATTEND Specialist
DX: H25.811 Combined forms of age-related cataract, right eye (principal); H35.372 Puckering of macula, left eye; Z87.891 Personal history of nicotine dependence; I10 Essential (primary) hypertension; E78.00 Pure hypercholesterolemia, unspecified; F41.8 Other specified anxiety disorders; Z85.46 Personal history of malignant neoplasm of prostate; H93.11 Tinnitus, right ear; M54.5 Low back pain; J45.909 Unspecified asthma, uncomplicated; K21.9 Gastro-esophageal reflux disease without esophagitis
CPT/HCPCS: A9270-GY; J2250; J3010; V2632

== ENCOUNTER 2021-05-07 07:32 | Observation (INO) ==
[~2021-05-07 07:32] MED LIST changes: +Acetaminophen IV 1 GM/100ML 100 ML IV ONE; -Acetaminophen TAB* 325 MG PO PRN; -Buffered Lidocaine 0.9% SYRIN* 5 ML/SYR SYRINGE INTRADERM ONE; +Buffered Lidocaine 1% SYRIN 1 ml INTRADERM ONE; +Lactated Ringers 1000 ml BAG 1,000 ML IV SCH; -Midazolam* 1 MG/ML 2 ML VIAL (2 MG) ONE
[2021-05-07] MEDS ORDERED: ceFAZolin 2 GM in NS PREMIX 2 GM/100 ML BAG IVPB ONE (08:11)
[2021-05-07] MEDS ORDERED: Acetaminophen IV 1 GM/100ML 100 ML IV ONE (08:11)
[2021-05-07] MEDS ORDERED: fentaNYL 100 mcg/2 ml 50 MCG/ML VIAL ONE ×2 (08:48→13:20)
[2021-05-07] MEDS ORDERED: Phenylephrine IV 10 MG/ML 1 ml VIAL ONE (10:04)
[2021-05-07] MEDS ORDERED: Ondansetron ODT 4 mg TAB 4 MG TAB PO PRN (10:53)
[2021-05-07] MEDS ORDERED: Morphine 2 MG/ML SYRINGE IV PRN (10:53)
[2021-05-07] MEDS ORDERED: Ondansetron 4 mg VIAL 2 MG/ML 2 ml VIAL IV PRN ×2 (10:53→11:22)
[2021-05-07] MEDS ORDERED: diPHENhydraMINE 25 mg TAB PO PRN (10:53)
[2021-05-07] MEDS ORDERED: diPHENhydraMINE IV 50 MG/ML 1 ml VIAL (BENADRYL) IV PRN ×2 (10:53→11:22)
[2021-05-07] MEDS ORDERED: Lactulose 30 ml UDC PO PRN (10:53)
[2021-05-07] MEDS ORDERED: Magnesium Hydroxide LIQ 30 ML UDC PO PRN (10:53)
[2021-05-07] MEDS ORDERED: fentaNYL 100 mcg/2 ml 50 MCG/ML VIAL IV PRN (11:22)
[2021-05-07] MEDS ORDERED: Metoclopramide 5 MG/ML VIAL (10 mg) IV PRN (11:22)
[2021-05-07] MEDS ORDERED: HYDROmorphone 1 MG/1 ML SYRINGE IV PRN (11:22)
[2021-05-07] MEDS ORDERED: Naloxone 0.4 mg VIAL 0.4 mg/ml 1 ml VIAL IV PRN (11:22)
[2021-05-07] MEDS ORDERED: HYDROcodone/ACETAMIN 5/325 mg TAB PO PRN (11:22)
[2021-05-07] MEDS: Psyllium PAK PO SCH (15:55)
[2021-05-07] MEDS: Lactated Ringers 1000 ml BAG 1,000 ML IV SCH (16:00)
[2021-05-07] MEDS: ceFAZolin 1 GM ADVAN 1 GM in NS 0.9% 50 ML 50 ML IVPB SCH (18:51)
[2021-05-07] MEDS: Polyethylene Glycol 3350 17 GM PACKET PO SCH (21:25)
[2021-05-07] MEDS: Magnesium Hydroxide LIQ 30 ML UDC PO SCH (21:32)
[2021-05-08] MEDS: Lactated Ringers 1000 ml BAG 1,000 ML IV SCH (01:34)
[2021-05-08] MEDS: ceFAZolin 1 GM ADVAN 1 GM in NS 0.9% 50 ML 50 ML IVPB SCH ×2 (02:17→10:47)
[2021-05-08 05:54] LABS: Hematocrit 34 % (42-52); Hemoglobin 11.8 g/dL (14.0-18.0); Mean Platelet Volume 7.6 fL (7.4-10.4); Platelet Count 202 10^3/uL (150-450)
[2021-05-08 06:03] LABS: Calcium 8.1 mg/dL (8.6-10.3); EGFR Non-African American 85.1 (>60); Potassium 4.1 mmol/L (3.5-5.0)
[2021-05-08] MEDS: Polyethylene Glycol 3350 17 GM PACKET PO SCH (07:38)
[2021-05-08] MEDS: Psyllium PAK PO SCH (08:46)
[2021-05-08] MEDS: Magnesium Hydroxide LIQ 30 ML UDC PO SCH (08:46)
[2021-05-08] MEDS ORDERED: Vitamin THERAPEUTIC TAB PO SCH (09:00)
[2021-05-08 15:48] VITALS: BP 120/58
== END 2021-05-08 16:40 | disposition home or self-care (01) ==
LOC: SSU 07:32 → OR 07:32
PROVIDERS: ADMIT Orthopaedic Surgery Adult Reconstructive Orthopaedic Surgery; ATTEND Orthopaedic Surgery Adult Reconstructive Orthopaedic Surgery

== ENCOUNTER 2021-05-09 03:52 | Observation (INO) ==
[2021-05-09] MEDS ORDERED: Ondansetron 4 mg VIAL 2 MG/ML 2 ml VIAL IV PRN (11:56)
[2021-05-09] MEDS ORDERED: Ondansetron ODT 4 mg TAB 4 MG TAB PO PRN (11:56)
[2021-05-09] MEDS ORDERED: diPHENhydraMINE IV 50 MG/ML 1 ml VIAL (BENADRYL) IV PRN (11:56)
[2021-05-09] MEDS ORDERED: Lactulose 30 ml UDC PO PRN (11:56)
[2021-05-09] MEDS ORDERED: diPHENhydraMINE 25 mg TAB PO PRN ×2 (11:56→12:09)
[2021-05-09] MEDS ORDERED: Magnesium Hydroxide LIQ 30 ML UDC PO PRN (11:56)
[2021-05-09] MEDS ORDERED: Fluticasone NASAL SPRAY 50MCG 16 gm SPRAY BTL BOTH NARES PRN (12:09)
[2021-05-09 12:34] LABS: Rapid COVID-19 Molecular Undetected (Undetected)
[2021-05-09] MEDS: Magnesium Hydroxide LIQ 30 ML UDC PO SCH (22:07)
[2021-05-10 06:33] LABS: Hematocrit 33 % (42-52); Hemoglobin 11.5 g/dL (14.0-18.0); Mean Platelet Volume 7.2 fL (7.4-10.4); Platelet Count 198 10^3/uL (150-450)
[2021-05-10 07:03] LABS: Calcium 8.3 mg/dL (8.6-10.3); EGFR African American 108.8 (>60); EGFR Non-African American 89.9 (>60); Potassium 4.2 mmol/L (3.5-5.0)
[2021-05-10] MEDS ORDERED: Cholecalciferol (VIT D3) 1,000 unit TAB PO SCH (09:00)
[2021-05-10] MEDS ORDERED: Vitamin THERAPEUTIC TAB PO SCH (09:00)
[2021-05-10] MEDS: Magnesium Hydroxide LIQ 30 ML UDC PO SCH (09:09)
[2021-05-10 11:34] VITALS: BP 124/59
== END 2021-05-10 14:31 | disposition home or self-care (01) ==
LOC: ED 03:52 → SSU 11:56 → INTOOBSV 11:56 → SUATTDRO 11:56 → SSU 13:36
PROVIDERS: ADMIT Student in an Organized Health Care Education/Training Program; ATTEND Orthopaedic Surgery Adult Reconstructive Orthopaedic Surgery

== ENCOUNTER 2023-02-18 07:14 | Observation (INO) ==
[~2023-02-18 07:14] MED LIST changes: -Acetaminophen IV 1 GM/100ML 100 ML IV ONE; +Famotidine IV 10 MG/ML 2 ml VIAL (20 mg) IV ONE; +Gelfoam 12-7 ADSORBABL SPONGE ONE; +Gelfoam Sponge SIZE 100 SPONGE ONE; +Lidocaine 1% w EPI 1:200,000 SDV 30 ML VIAL ONE; +Lidocaine 2% PF 5 ML VIAL ONE; +Propofol 10 MG/ML 20 ML BTL ONE; +Rocuronium 50 mg VIAL 10 mg/ml 5 ml VIAL (50 mg) ONE; +Thrombin 5,000 UNITS 1 APPLIC KIT - topical use - TOPICAL ONE; +ceFAZolin VIAL VIAL ONE; +fentaNYL 100 mcg/2 ml 50 MCG/ML VIAL ONE
[2023-02-18] MEDS ORDERED: Chlorhexidine MOUTHWASH 0.12% 15 ML UDC ONE (07:21)
[2023-02-18] MEDS ORDERED: ceFAZolin 2 GM in NS PREMIX 2 GM/100 ML BAG IVPB ONE (07:37)
[2023-02-18] MEDS ORDERED: Famotidine IV 10 MG/ML 2 ml VIAL (20 mg) ONE (07:37)
[2023-02-18 07:46] LABS: Rapid COVID-19 Molecular Undetected (Undetected)
[2023-02-18] MEDS ORDERED: Acetaminophen IV 1 GM/100ML 1,000 MG/100 ML BAG IV ONE (10:46)
[2023-02-18] MEDS ORDERED: Dexamethasone IV 4 MG/ML VIAL 1 ml VIAL ONE (10:48)
[2023-02-18] MEDS ORDERED: Ondansetron 4 mg VIAL 2 MG/ML 2 ml VIAL ONE (11:00)
[2023-02-18] MEDS ORDERED: Naloxone 0.4 mg VIAL 0.4 mg/ml 1 ml VIAL IV PRN (11:20)
[2023-02-18] MEDS ORDERED: fentaNYL 100 mcg/2 ml 50 MCG/ML VIAL IV PRN (11:20)
[2023-02-18] MEDS ORDERED: Senna TAB 8.6 mg TAB PO PRN (12:26)
[2023-02-18] MEDS ORDERED: Morphine 2 MG/ML SYRINGE IV PRN (12:26)
[2023-02-18] MEDS ORDERED: Ondansetron 4 mg VIAL 2 MG/ML 2 ml VIAL IV PRN (12:26)
[2023-02-18] MEDS ORDERED: Calcium Carb (TUMS) 500 mg CHEW TAB PO PRN (12:26)
[2023-02-18] MEDS ORDERED: Fluticasone NASAL SPRAY 50MCG 16 gm SPRAY BTL BOTH NARES PRN (12:30)
[2023-02-18] MEDS ORDERED: Lactated Ringers 1000 ml BAG 1,000 ML IV SCH (13:00)
[2023-02-19] MEDS ORDERED: oxyCODONE/Acetamin 5/325 mg TAB PO PRN (07:51)
[2023-02-19] MEDS: DULoxetine DR 60 mg CAP PO SCH (09:42)
[2023-02-19] MEDS: oxyCODONE/Acetamin 5/325 mg TAB PO PRN ×2 (09:42→21:27)
[2023-02-20 10:32] VITALS: BP 122/56
[2023-02-20] MEDS: DULoxetine DR 60 mg CAP PO SCH (10:43)
== END 2023-02-20 11:35 | disposition home or self-care (01) ==
LOC: SSU 07:14 → OR 07:14
PROVIDERS: ADMIT Neurological Surgery; ATTEND Neurological Surgery